=== PATIENT | female | born 1995 | race Caucasian/White ===

== ENCOUNTER 2019-03-09 17:24 | Inpatient (IN) | payer BC ==
[2019-03-09] MEDS ORDERED: Ondansetron 4 MG/2 ML SDV IVPUSH PRN (17:32)
[2019-03-09] MEDS ORDERED: Nalbuphine 10 MG/1 ML Vial IVPUSH PRN (19:58)
[2019-03-09] MEDS ORDERED: Sodium Chloride 0.9% 10 ML Syringe FLUSH PRN (19:58)
[2019-03-09] MEDS ORDERED: Oxytocin/Lactated Ringers 10 UNIT/1,000 ML BAG IV SCH (20:00)
[2019-03-09] MEDS ORDERED: Ampicillin 2 GM in Sodium Chloride 0.9% 100 ML IV ONE (20:30)
[2019-03-09] MEDS: Lactated Ringers 1,000 ML IV SCH (20:50)
--- NOTE | 2019-03-09 21:03 | PCM.LDHP ---
<Jose Cruz Doherty - Last Filed: 03/09/19 20:30> L&D History of Present Illness - General Date of Service: 03/09/19 Admit Problem/Dx: Patient Status Order with Admit Dx/Problem 03/09/19 17:32 Patient Status [ADT] Routine 03/09/19 19:58 Patient Status [ADT] Routine Admission Diagnosis/Problem Admission Diagnosis/Problem 03/09/19 20:30 Madhu is a 23-year-old 2 para 0010 white female who being admitted on 03/09/2019 for spontaneous labor. JOHN is 03/08/2019 placing the patient at 40 1/ 7 weeks gestational age upon admission. Source of Information: Patient History Limitations: Reports: No Limitations - History of Present Illness Introduction:: Introduction: Madhu is a 23-year-old 2 para 0010 white female at 40 1/7 weeks gestational age with an JOHN of 03/08/2019 who is being admitted on 03/09/2019 for spontaneous labor. [employer] History: Madhu is a 23-year-old 2 para 0010 white female at 40 1/7 weeks gestational age on admission based on her LMP (06/01/2018). Follow up ultrasounds X3 are consistent with this date. This has been relatively unremarkable. She plans on breast feeding. Unknown if genetic testing was performed. Group B strep screen was positive. Her first medical appointment for transfer of care to [facility] was on 11/12/2018. Early ultrasound was performed at an outside facility on 07/30/2018. During the course of her she gained approximately 22 pounds. Her vital signs remained stable throughout care and her fundal height growth was appropriate. She has a past history of : lap ovarian cystectomy (2011), open ovarian cystectomy (2013), and laparoscopic oophorectomy (2015). Laboratory testing in shows her blood type to be A-. First hemoglobin was 14.5g/dL and platelets were 272,000. She is rubella reactive. Hepatitis B surface antigen, HIV assay, chlamydia, and gonorrhea were all negative. RPR was nonreactive. Group B strep screen was positive. Second trimester labs show hemoglobin at 14.5g/dL and platelets at 291,000. Glucose tolerance test was 123mg/dL. - Related Data Allergies/Adverse Reactions: Allergies Allergy/AdvReac Type Severity Reaction Status Date / Time No Known Allergies Allergy Verified 02/27/19 11:51 Home Medications: Home Meds Omeprazole 20 mg PO DAILY 03/09/19 [History] PNV95/Ferrous Fumarate/FA [ Tablet] 1 each PO DAILY 03/09/19 [History] Past Medical History - Past Health History Medical/Surgical History: Denies Medical/Surgical History (Denies medical history.) - Past Surgical History Female Surgical History: Reports: Cystectomy (Lap ovarian cystectomy (left) 2011; Open ovarian cystectomy (left) 2013.), Oophorectomy Other Female Surgeries/Procedures: Laparoscopic oophorectomy (left) 2015. Social & Family History - Family History Family Medical History: Noncontributory - Tobacco Use Smoking Status *Q: Former Smoker (10 year history. Cigarettes. Quit 06/15/2018.) Tobacco Use Within Last Twelve Months: Cigarettes Years of Tobacco use: 10 Used Tobacco, but Quit: Yes Month/Year Tobacco Last Used: 06/15/2018 - Alcohol Use Alcohol Use History: No - Recreational Drug Use Recreational Drug Use: No H&P Review of Systems - Review of Systems: Review Of Systems: See Below General: Reports: No Symptoms HEENT: Reports: No Symptoms Pulmonary: Reports: No Symptoms Cardiovascular: Reports: No Symptoms Gastrointestinal: Reports: No Symptoms Musculoskeletal: Reports: No Symptoms Skin: Reports: No Symptoms Psychiatric: Reports: No Symptoms Neurological: Reports: No Symptoms Review of Systems Comment:: In general, Madhu is a well developed, well-nourished, pleasant female in no acute distress. Last evaluation in clinic was on 03/04/2019. Blood pressure was 134/76.Weight was 257 pounds. Height is 5'6". Her pregravid weight was 235 pounds. Pregravid BMI was 37.9. L&D Exam - Exam Exam: See Below - Vital Signs Vital Signs: Last Vital Signs Temp 36.8 C 03/09/19 17:32 Pulse 113 H 03/09/19 17:32 Resp 18 03/09/19 17:32 BP 139/87 03/09/19 17:32 Pulse Ox Weight: 115.122 kg - Exam General: Alert, Oriented HEENT: Conjunctiva Clear, EOMI, Hearing Intact, Pupils Equal, Pupils Reactive Neck: Supple, Trachea Midline Lungs: Clear to Auscultation Cardiovascular: Regular Rate, Regular Rhythm Extremities: Normal Inspection, Normal Range of Motion, Non-Tender, No Pedal Edema, Normal Capillary Refill Skin: Warm, Dry, Intact Psychiatric: Alert, Normal Affect, Normal Mood Orders Last 24hrs: Active Orders 24 hr Category Date Time Status Patient Status [ADT] Routine ADT 03/09/19 19:58 Active Activity as Tolerated [RC] PFP Care 03/09/19 19:58 Active Communication Order [RC] ASDIRECTED Care 03/09/19 19:58 Active Heart Tones [RC] ASDIRECTED Care 03/09/19 19:59 Active Non Stress Test [RC] PER UNIT ROUTINE Care 03/09/19 17:32 Active Notify Provider [RC] PFP Care 03/09/19 19:58 Active Notify Provider [RC] PRN Care 03/09/19 19:58 Active Peripheral IV Care [RC] . DIRECTED Care 03/09/19 19:59 Active Vital Signs [RC] PER UNIT ROUTINE Care 03/09/19 17:32 Active Vital Signs [RC] PER UNIT ROUTINE Care 03/09/19 19:58 Active Regular Diet [DIET] Diet 03/09/19 Breakfast Active CBC WITH AUTO DIFF [HEME] Stat Lab 03/09/19 19:58 Ordered RAPID PLASMA REAGIN,RPR [CHEM] Routine Lab 03/09/19 19:58 Ordered Ampicillin 1 gm Med 03/10/19 00:30 Active Sodium Chloride 0.9% [Normal Saline] 100 ml IV Q4H Ampicillin 2 gm Med 03/09/19 20:30 Active Sodium Chloride 0.9% [Normal Saline] 100 ml IV ONETIME Lactated Ringers [Ringers, Lactated] 1,000 ml Med 03/09/19 20:00 Active IV ASDIRECTED Nalbuphine [Nubain] Med 03/09/19 19:58 Active 10 mg IVPUSH Q2H PRN Ondansetron [Zofran] Med 03/09/19 17:32 Active 4 mg IVPUSH Q4H PRN Oxytocin/Lactated Ringers [Pitocin in LR 10 Units/1,000 Med 03/09/19 20:00 Active ML] 10 unit in 1,000 ml IV .CONTINUOUS Sodium Chloride 0.9% [Saline Flush] Med 03/09/19 19:58 Active 10 ml FLUSH ASDIRECTED PRN Electronic Heart Tones Ext w TOCO [WOMSER] Oth 03/09/19 19:58 Ordered Routine Electronic Heart Tones Internal [WOMSER] Per Unit Oth 03/09/19 19:58 Ordered Routine Peripheral IV Insertion Adult [OM.PC] Routine Oth 03/09/19 19:58 Ordered Resuscitation Status Routine Resus Stat 03/09/19 17:32 Ordered Medication Orders Lactated Ringer's (Ringers, Lactated) 1,000 mls @ 100 mls/hr IV ASDIRECTED GABI Oxytocin/Lactated Ringer's (Pitocin In Lr 10 Units/1,000 Ml) 10 unit in 1,000 mls @ 500 mls/hr IV .CONTINUOUS GABI Ampicillin Sodium 2 gm/ Sodium (Chloride) 100 mls @ 200 mls/hr IV ONETIME ONE Stop: 03/09/19 20:59 Ampicillin Sodium 1 gm/ Sodium (Chloride) 100 mls @ 200 mls/hr IV Q4H GABI Nalbuphine HCl (Nubain) 10 mg IVPUSH Q2H PRN PRN Reason: Pain Ondansetron HCl (Zofran) 4 mg IVPUSH Q4H PRN PRN Reason: Nausea/Vomiting Sodium Chloride (Saline Flush) 10 ml FLUSH ASDIRECTED PRN PRN Reason: Keep Vein Open Assessment/Plan Comment:: Assessment: 1. 40 1/7 weeks gestational age. 2. Group B strep positive. 3. Blood type A-. 4. Desires Epidural. 5. Plans on breast feeding. 5. TDAP given 12/11/2018. 6. RPR negative. Plan: 1. Anticipate . 2. Administer ampicillin for group B strep. 3. Administer Rhogam. 4. Provide epidural. 5. CBC and RPR to be drawn. 6. Routine care. <Placido Kaiser - Last Filed: 03/10/19 13:27> L&D History of Present Illness - General Admit Problem/Dx: Patient Status Order with Admit Dx/Problem 03/09/19 17:32 Patient Status [ADT] Routine 03/09/19 19:58 Patient Status [ADT] Routine Admission Diagnosis/Problem Admission Diagnosis/Problem Source of Information: Patient History Limitations: Reports: No Limitations H&P Review of Systems - Review of Systems: Review Of Systems: See Below L&D Exam - Exam Exam: See Below - Vital Signs Vital Signs: Last Vital Signs Temp 36.8 C 03/09/19 17:32 Pulse 113 H 03/09/19 17:32 Resp 18 03/09/19 17:32 BP 139/87 03/09/19 17:32 Pulse Ox 99 03/10/19 04:05 - Patient Data Lab Results Last 24 hrs: Laboratory Results - last 24 hr 03/09/19 03/09/19 Range/Units 20:30 20:30 WBC 10.86 H (3.98-10.04) K/mm3 RBC 4.62 (3.98-5.22) M/mm3 Hgb 11.0 L (11.2-15.7) gm/dl Hct 35.3 (34.1-44.9) % MCV 76.4 L (79.4-94.8) fl MCH 23.8 L (25.6-32.2) pg MCHC 31.2 L (32.2-35.5) g/dl RDW Std Deviation 42.5 (36.4-46.3) fL Plt Count 312 (182-369) K/mm3 MPV 10.4 (9.4-12.3) fl Neut % (Auto) 71.2 H (34.0-71.1) % Lymph % (Auto) 21.8 (19.3-51.7) % Early % (Auto) 6.2 (4.7-12.5) % Eos % (Auto) 0.4 L (0.7-5.8) Baso % (Auto) 0.2 (0.1-1.2) % Neut # (Auto) 7.74 H (1.56-6.13) K/mm3 Lymph # (Auto) 2.37 (1.18-3.74) K/mm3 Early # (Auto) 0.67 H (0.24-0.36) K/mm3 Eos # (Auto) 0.04 (0.04-0.36) K/mm3 Baso # (Auto) 0.02 (0.01-0.08) K/mm3 RPR Non-reactive (NONREACTIVE) Result Diagrams: 03/09/19 20:30 Problem List Initiated/Reviewed/Updated: Yes Orders Last 24hrs: Active Orders 24 hr Category Date Time Status Patient Status [ADT] Routine ADT 03/09/19 19:58 Active Activity as Tolerated [RC] PFP Care 03/09/19 19:58 Active Communication Order [RC] ASDIRECTED Care 03/09/19 19:58 Active Heart Tones [RC] ASDIRECTED Care 03/09/19 19:59 Active Notify Provider [RC] ASDIRECTED Care 03/10/19 03:05 Active Notify Provider [RC] PFP Care 03/09/19 19:58 Active Notify Provider [RC] PRN Care 03/09/19 19:58 Active Peripheral IV Care [RC] . DIRECTED Care 03/09/19 19:59 Active Pulse Oximetry [RC] ASDIRECTED Care 03/10/19 03:05 Active Vital Signs [RC] 09,15,21,03 Care 03/09/19 17:32 Active Ampicillin 1 gm Med 03/10/19 00:30 Active Sodium Chloride 0.9% [Normal Saline] 100 ml IV Q4H Bupivicaine/fentaNYL/NS [fentaNYL/Bupivacaine/NS 2 MCG- Med 03/10/19 03:05 Active 0.125% 250 ML] 0 ml EPIDUR CONTINUOUS PRN Lactated Ringers [Ringers, Lactated] 1,000 ml Med 03/09/19 20:00 Active IV ASDIRECTED Nalbuphine [Nubain] Med 03/09/19 19:58 Active 10 mg IVPUSH Q2H PRN Ondansetron [Zofran] Med 03/10/19 03:05 Active 4 mg IVPUSH ONETIME PRN Ondansetron [Zofran] Med 03/09/19 17:32 Active 4 mg IVPUSH Q4H PRN Oxytocin/Lactated Ringers [Pitocin in LR 10 Units/1,000 Med 03/09/19 20:00 Active ML] 10 unit in 1,000 ml IV .CONTINUOUS Oxytocin/Lactated Ringers [Pitocin in LR 10 Units/1,000 Med 03/10/19 00:15 Active ML] 10 unit in 1,000 ml IV TITRATE Sodium Chloride 0.9% [Saline Flush] Med 03/09/19 19:58 Active 10 ml FLUSH ASDIRECTED PRN ePHEDrine [ePHEDrine sulfate] Med 03/10/19 03:05 Active 5 mg IVPUSH ASDIRECTED PRN fentaNYL [Sublimaze] Med 03/10/19 03:05 Active 100 mcg EPIDUR Q3H PRN Electronic Heart Tones Ext w TOCO [WOMSER] Oth 03/09/19 19:58 Ordered Routine Electronic Heart Tones Internal [WOMSER] Per Unit Oth 03/09/19 19:58 Ordered Routine Peripheral IV Insertion Adult [OM.PC] Routine Oth 03/09/19 19:58 Ordered Resuscitation Status Routine Resus Stat 03/09/19 17:32 Ordered Medication Orders Ephedrine Sulfate (Ephedrine Sulfate) 5 mg IVPUSH ASDIRECTED PRN PRN Reason: Hypotension Fentanyl (Sublimaze) 100 mcg EPIDUR Q3H PRN PRN Reason: Pain Fentanyl/Bupivacaine HCl (Fentanyl/Bupivacaine/Ns 2 Mcg-0.125% 250 Ml) 0 ml EPIDUR CONTINUOUS PRN PRN Reason: Pain Lactated Ringer's (Ringers, Lactated) 1,000 mls @ 100 mls/hr IV ASDIRECTED [facility] Last Admin: 03/10/19 05:25 Dose: 300 mls/hr Infusion: 03/10/19 05:05 Dose: 999 mls/hr Admin: 03/10/19 04:04 Dose: 999 mls/hr Infusion: 03/10/19 03:14 Dose: 999 mls/hr Infusion: 03/10/19 02:30 Dose: 999 mls/hr Infusion: 03/10/19 00:45 Dose: 100 mls/hr Infusion: 03/09/19 21:50 Dose: 0 mls/hr Admin: 03/09/19 20:50 Dose: 100 mls/hr Oxytocin/Lactated Ringer's (Pitocin In Lr 10 Units/1,000 Ml) 10 unit in 1,000 mls @ 500 mls/hr IV .CONTINUOUS [facility] Ampicillin Sodium 1 gm/ Sodium (Chloride) 100 mls @ 200 mls/hr IV Q4H [facility] Last Admin: 03/10/19 05:14 Dose: 200 mls/hr Infusion: 03/10/19 01:34 Dose: 200 mls/hr Admin: 03/10/19 01:04 Dose: 200 mls/hr Oxytocin/Lactated Ringer's (Pitocin In Lr 10 Units/1,000 Ml) 10 unit in 1,000 mls @ 12 mls/hr IV TITRATE GABI; Protocol Last Titration: 03/10/19 04:49 Dose: 0 munits/min, 0 mls/hr Titration: 03/10/19 01:40 Dose: 4 munits/min, 24 mls/hr Admin: 03/10/19 00:45 Dose: 2 munits/min, 12 mls/hr Nalbuphine HCl (Nubain) 10 mg IVPUSH Q2H PRN PRN Reason: Pain Last Admin: 03/10/19 01:51 Dose: 10 mg Ondansetron HCl (Zofran) 4 mg IVPUSH Q4H PRN PRN Reason: Nausea/Vomiting Ondansetron HCl (Zofran) 4 mg IVPUSH ONETIME PRN PRN Reason: Nausea/Vomiting Sodium Chloride (Saline Flush) 10 ml FLUSH ASDIRECTED PRN PRN Reason: Keep Vein Open Assessment/Plan Comment:: I have read and agree with the student's history and physical documentation.
[2019-03-10] MEDS ORDERED: Oxytocin/Lactated Ringers 10 UNIT/1,000 ML BAG IV SCH (00:15)
[2019-03-10] MEDS: Ampicillin 1 GM in Sodium Chloride 0.9% 100 ML IV SCH ×4 (01:04→13:23)
[2019-03-10] MEDS ORDERED: ePHEDrine 50 MG/ML SDV IVPUSH PRN (03:05)
[2019-03-10] MEDS ORDERED: Ondansetron 4 MG/2 ML SDV IVPUSH PRN (03:05)
[2019-03-10] MEDS ORDERED: fentaNYL 100 MCG/2 ML SDV EPIDUR PRN (03:05)
[2019-03-10] MEDS ORDERED: fentaNYL/Bupivacaine/NS 2 MCG-0.125% 250 ML EPIDUR PRN (03:05)
--- NOTE | 2019-03-10 03:08 | PCM.PREANE ---
Preanesthetic Assessment - Anesthesia/Transfusion/Family Hx Anesthesia History: Prior Anesthesia Without Reaction Family History of Anesthesia Reaction: No Transfusion History: No Prior Transfusion(s) Intubation History: Unknown - Review of Systems General: No Symptoms Pulmonary: No Symptoms (quit smoking ) Cardiovascular: No Symptoms Gastrointestinal: No Symptoms (GERD) Neurological: No Symptoms (Patient states she has lower back pain chronically.) , Headache (History of migraines) Other: Reports: None - Physical Assessment NPO Status Date: 03/09/19 NPO Status Time: 23:00 Vital Signs: Last Vital Signs Temp 36.8 C 03/09/19 17:32 Pulse 113 H 03/09/19 17:32 Resp 18 03/09/19 17:32 BP 139/87 03/09/19 17:32 Pulse Ox Height: 1.68 m Weight: 115.122 kg ASA Class: 2 Mental Status: Alert & Oriented x3 Airway Class: Mallampati = 2 Dentition: Reports: Normal Dentition, Caries Thyro-Mental Finger Breadths: 3 Mouth Opening Finger Breadths: 3 ROM/Head Extension: Full Lungs: Clear to Auscultation, Normal Respiratory Effort Cardiovascular: Regular Rate, Regular Rhythm, No Murmurs - Lab Values: Laboratory Last Values WBC 10.86 K/mm3 (3.98-10.04) H 03/09/19 20:30 RBC 4.62 M/mm3 (3.98-5.22) 03/09/19 20:30 Hgb 11.0 gm/dl (11.2-15.7) L 03/09/19 20:30 Hct 35.3 % (34.1-44.9) 03/09/19 20:30 MCV 76.4 fl (79.4-94.8) L 03/09/19 20:30 MCH 23.8 pg (25.6-32.2) L 03/09/19 20:30 MCHC 31.2 g/dl (32.2-35.5) L 03/09/19 20:30 RDW Std Deviation 42.5 fL (36.4-46.3) 03/09/19 20:30 Plt Count 312 K/mm3 (182-369) 03/09/19 20:30 MPV 10.4 fl (9.4-12.3) 03/09/19 20:30 Neut % (Auto) 71.2 % (34.0-71.1) H 03/09/19 20:30 Lymph % (Auto) 21.8 % (19.3-51.7) 03/09/19 20:30 [place] % (Auto) 6.2 % (4.7-12.5) 03/09/19 20:30 Eos % (Auto) 0.4 (0.7-5.8) L 03/09/19 20:30 Baso % (Auto) 0.2 % (0.1-1.2) 03/09/19 20:30 Neut # (Auto) 7.74 K/mm3 (1.56-6.13) H 03/09/19 20:30 Lymph # (Auto) 2.37 K/mm3 (1.18-3.74) 03/09/19 20:30 [place] # (Auto) 0.67 K/mm3 (0.24-0.36) H 03/09/19 20:30 Eos # (Auto) 0.04 K/mm3 (0.04-0.36) 03/09/19 20:30 Baso # (Auto) 0.02 K/mm3 (0.01-0.08) 03/09/19 20:30 RPR Non-reactive (NONREACTIVE) 03/09/19 20:30 Above labs reviewed and noted and within acceptable ranges to proceed with epidural. - Allergies Allergies/Adverse Reactions: Allergies Allergy/AdvReac Type Severity Reaction Status Date / Time No Known Allergies Allergy Verified 02/27/19 11:51 - Anesthesia Plan Pre-Op Medication Ordered: None - Acknowledgements Anesthesia Type Planned: Epidural Pt an Appropriate Candidate for the Planned Anesthesia: Yes Alternatives and Risks of Anesthesia Discussed w Pt/Guardian: Yes Pt/Guardian Understands and Agrees with Anesthesia Plan: Yes PreAnesthesia Questionnaire - Past Health History Medical/Surgical History: Denies Medical/Surgical History (Denies medical history.) HEENT History: Reports: None Cardiovascular History: Reports: None Respiratory History: Reports: None Gastrointestinal History: Reports: None Genitourinary History: Reports: None 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: , Spontaneous , Other (See Below) Other OB/BYN History: L ovarian cysts (3 x) with ultimate surgical removal of L ovary Musculoskeletal History: Reports: None Neurological History: Reports: None Psychiatric History: Reports: None Endocrine/Metabolic History: Reports: None Hematologic History: Reports: None Immunologic History: Reports: None Oncologic (Cancer) History: Reports: None Dermatologic History: Reports: None - Infectious Disease History Infectious Disease History: Reports: None - Past Surgical History Female Surgical History: Reports: Cystectomy (Lap ovarian cystectomy (left) 2011; Open ovarian cystectomy (left) 2013.), Oophorectomy Other Female Surgeries/Procedures: Laparoscopic oophorectomy (left) 2015. - SUBSTANCE USE Smoking Status *Q: Former Smoker (10 year history. Cigarettes. Quit 06/15/2018.) Tobacco Use Within Last Twelve Months: Cigarettes Second Hand Smoke Exposure: No Recreational Drug Use History: No - HOME MEDS Home Medications: Home Meds Omeprazole 20 mg PO DAILY 03/09/19 [History] PNV95/Ferrous Fumarate/FA [ Tablet] 1 each PO DAILY 03/09/19 [History] - CURRENT (IN HOUSE) MEDS Current Meds: Current Medications Ephedrine Sulfate (Ephedrine Sulfate) 5 mg IVPUSH ASDIRECTED PRN PRN Reason: Hypotension Fentanyl (Sublimaze) 100 mcg EPIDUR Q3H PRN PRN Reason: Pain Fentanyl/Bupivacaine HCl (Fentanyl/Bupivacaine/Ns 2 Mcg-0.125% 250 Ml) ml EPIDUR CONTINUOUS PRN PRN Reason: Pain Lactated Ringer's (Ringers, Lactated) 1,000 mls @ 100 mls/hr IV ASDIRECTED GABI Last Infusion: 03/10/19 02:30 Dose: 999 mls/hr Oxytocin/Lactated Ringer's (Pitocin In Lr 10 Units/1,000 Ml) 10 unit in 1,000 mls @ 500 mls/hr IV .CONTINUOUS GABI Ampicillin Sodium 1 gm/ Sodium (Chloride) 100 mls @ 200 mls/hr IV Q4H GABI Last Admin: 03/10/19 01:04 Dose: 200 mls/hr Oxytocin/Lactated Ringer's (Pitocin In Lr 10 Units/1,000 Ml) 10 unit in 1,000 mls @ 12 mls/hr IV TITRATE GABI; Protocol Last Titration: 03/10/19 01:40 Dose: 4 munits/min, 24 mls/hr Nalbuphine HCl (Nubain) 10 mg IVPUSH Q2H PRN PRN Reason: Pain Last Admin: 03/10/19 01:51 Dose: 10 mg Ondansetron HCl (Zofran) 4 mg IVPUSH Q4H PRN PRN Reason: Nausea/Vomiting Ondansetron HCl (Zofran) 4 mg IVPUSH ONETIME PRN PRN Reason: Nausea/Vomiting Sodium Chloride (Saline Flush) 10 ml FLUSH ASDIRECTED PRN PRN Reason: Keep Vein Open Discontinued Medications Ampicillin Sodium 2 gm/ Sodium (Chloride) 100 mls @ 200 mls/hr IV ONETIME ONE Stop: 03/09/19 20:59 Last Admin: 03/09/19 21:00 Dose: 200 mls/hr
[2019-03-10] MEDS: Lactated Ringers 1,000 ML IV SCH ×4 (04:04→13:23)
[2019-03-10] MEDS ORDERED: Lidocaine 1.5% with EPINEPHrine 1:200,000 5 ML Amp ONE (12:00)
[2019-03-10] MEDS ORDERED: Bupivacaine 0.25% 10 ML SDV ONE (12:00)
--- NOTE | 2019-03-10 13:32 | PCM.SN ---
- Free Text/Narrative Note: Progress has been slow but steady. FHTs at times have had decreased variability but this improves with scalp manipulation. IUPC placed showing regular ctx q 3 minutes with adequate strength. Some early decels noted at times. Cx-9+/+1100%/anterior and very soft. A: slow progression of labor P: will monitor ctx and if adequate allow for 1-2 hours. If no change in cx may consider abdominal delivery. If inadequate will add pitocin judiciously. Monitor for FHTs and intervene as indicated.
[2019-03-10] MEDS ORDERED: Lidocaine 1% 50 ML MDV ONE (16:06)
--- NOTE | 2019-03-10 16:41 | PCM.SN ---
- Free Text/Narrative Note: Madhu is a 23-year-old 2 para 0010 white female who being admitted on 03/09/2019 for spontaneous labor. JOHN is 03/08/2019 placing the patient at 40 1/ 7 weeks gestational age upon admission. She had Nubain initially for pain control and then stepped up to an epidural. This slowly but steadily to complete cervical dilation by approximately 1300 hrs. on 03/10/2019. She continued to push at this time until approximately 1600 hrs. as which time she was having significant variable to late decelerations down to the 90s. Decision was made to proceed with vacuum extraction assistance. The procedure, risks, benefits, alternatives of care including discussed with patient. She appeared to understand and gave verbal consent. Back extractor was placed and with one contraction the baby was delivered.Midline episiotomy was made.Pop off occurred after the delivery of the baby's head. They've then proceeded to deliver without any incident. Baby delivered at 1601 hrs. on 03/10/2019 in a direct occiput anterior position. Baby weighed 3630 g (8 lbs. 0 oz.), had a length of 21 inches and Apgars of 8 and 9. Baby was placed on mom's abdomen. Nose and mouth were bulb suctioned. Cord was allowed to pulsate until finished. It was then clamped 2 and cut. Umbilical cord had 3 vessels. Cord blood was obtained. The placenta delivered in a [place] patient patient, appeared intact and complete and was discarded per patient desire. The area of the episiotomy was infiltrated with lidocaine 1%-20 mL total. The patient on it was repaired with 3 -0 Monocryl suture in a routine fashion. Assessment blood loss was approximately 200 mL. Patient plans to breast-feed. Condition: Good. It should be noted that Nubain 10 mg was given IV push after delivery of the baby for pain relief.
[2019-03-10] MEDS ORDERED: Benzocaine/Menthol 20%-0.5% Spray 56 GM Canister TOP PRN (17:13)
[2019-03-10] MEDS ORDERED: Witch Hazel Medicated Pads 40/Jar TOP PRN (17:13)
[2019-03-10] MEDS: Ibuprofen 600 MG Tab PO PRN ×2 (18:23→22:51)
[2019-03-11] MEDS: Ibuprofen 600 MG Tab PO PRN ×5 (04:41→23:39)
--- NOTE | 2019-03-11 08:02 | PCM.SN ---
- Free Text/Narrative Note: note: Patient is doing well in the period. Minimal lochia, voiding well, ambulated without problems. Nursing without concerns. Patient is afebrile, vital signs are stable Abdomen is flat, soft, uterus is below the umbilicus and is firm and nontender. Legs are nontender. Assessment: recovery going well. Plan: Routine care. Patient be discharged home within the next 24-48 hours.
[2019-03-11] MEDS: Ampicillin 1 GM in Sodium Chloride 0.9% 100 ML IV SCH (08:38)
[2019-03-11] MEDS: Prenatal Multivitamin with Calcium/Folic Acid/Iron Tab PO SCH (13:58)
--- NOTE | 2019-03-11 16:26 | PCM48HPAN ---
Post Anesthesia Note - EVALUATION WITHIN 48HRS OF ANESTHETIC Vital Signs in Normal Range: Yes Patient Participated in Evaluation: Yes Respiratory Function Stable: Yes Airway Patent: Yes Cardiovascular Function Stable: Yes Hydration Status Stable: Yes Pain Control Satisfactory: Yes Nausea and Vomiting Control Satisfactory: Yes Mental Status Recovered: Yes Vital Signs: Last Vital Signs Temp 97.9 F 03/11/19 02:33 Pulse 99 03/11/19 11:24 Resp 14 03/11/19 11:24 BP 130/55 L 03/11/19 11:24 Pulse Ox 98 03/11/19 11:24
[2019-03-11] MEDS: Docusate Sodium 100 MG Cap PO PRN (17:59)
[2019-03-11] MEDS: Acetaminophen 325 MG Tab PO PRN (20:27)
[2019-03-12] MEDS: Ibuprofen 600 MG Tab PO PRN ×2 (05:48→11:03)
[2019-03-12] MEDS: Docusate Sodium 100 MG Cap PO PRN (05:48)
[2019-03-12] MEDS: Prenatal Multivitamin with Calcium/Folic Acid/Iron Tab PO SCH (09:12)
[2019-03-12] MEDS: Acetaminophen 325 MG Tab PO PRN (09:13)
--- NOTE | 2019-03-12 09:40 | PCM.DCSUM1 ---
Discharge Summary - Hospital Course Free Text/Narrative:: Madhu is a 23-year-old 2 para 0010 white female who being admitted on 03/09/2019 for spontaneous labor. JOHN is 03/08/2019 placing the patient at 40 1/ 7 weeks gestational age upon admission. She had Nubain initially for pain control and then stepped up to an epidural. This slowly but steadily to complete cervical dilation by approximately 1300 hrs. on 03/10/2019. She continued to push at this time until approximately 1600 hrs. as which time she was having significant variable to late decelerations down to the 90s. Decision was made to proceed with vacuum extraction assistance. The procedure, risks, benefits, alternatives of care including discussed with patient. She appeared to understand and gave verbal consent. Back extractor was placed and with one contraction the baby was delivered.Midline episiotomy was made.Pop off occurred after the delivery of the baby's head. They've then proceeded to deliver without any incident. Baby delivered at 1601 hrs. on 03/10/2019 in a direct occiput anterior position. Baby weighed 3630 g (8 lbs. 0 oz.), had a length of 21 inches and Apgars of 8 and 9. Baby was placed on mom's abdomen. Nose and mouth were bulb suctioned. Cord was allowed to pulsate until finished. It was then clamped 2 and cut. Umbilical cord had 3 vessels. Cord blood was obtained. The placenta delivered in a [place] patient patient, appeared intact and complete and was discarded per patient desire. The area of the episiotomy was infiltrated with lidocaine 1%-20 mL total. The patient on it was repaired with 3 -0 Monocryl suture in a routine fashion. Assessment blood loss was approximately 200 mL. Patient plans to breast-feed. Condition: Good. It should be noted that Nubain 10 mg was given IV push after delivery of the baby for pain relief. patient is currently well. She is nursing without problems. Ambulating well and has minimal lochia. She is ready for discharge home. Diagnosis: Stroke: No - Discharge Data Discharge Date: 03/12/19 Discharge Disposition: Home, Self-Care 01 Condition: Good - Referral to Home Health Primary Care Physician: Ashlie Thorpe MD - Patient Instructions Diet: Regular Diet as Tolerated (increased calories and calcium is recommended.) Activity: As Tolerated (no intercourse tampons still bleeding results), No Lifting Over 25 Pounds Driving: May Drive Today Showering/Bathing: May Shower (may take a bath) Notify Provider of: Fever, Increased Pain, Swelling and Redness, Nausea and/or Vomiting - Discharge Plan Home Medications: Home Meds PNV95/Ferrous Fumarate/FA [ Tablet] 1 each PO DAILY 03/09/19 [History] Acetaminophen [Tylenol] 650 mg PO Q4H PRN tablet 03/12/19 [Rx] Ibuprofen [Motrin] 600 mg PO Q4H PRN tablet 03/12/19 [Rx] Referrals: Ashlie Thorpe MD [Primary Care Provider] - - Discharge Summary/Plan Comment DC Time >30 min.: No Discharge Summary/Plan Comment: Discharge instructions: 1. Discharge home 2. Diet, activity and follow-up discussed with patient. Recommend nursing diet with increased calories and calcium. 3. Precautions given concern increased pain, bleeding, temperature, signs/ symptoms of DVT/PE. 4. Medications per home medication was printed, discussed with and given to the patient. 5. Return to clinic-Dr. Thorpe[address] [facility]. Diagnosis: Term -delivered Condition: Good - Patient Data Vitals - Most Recent: Last Vital Signs Temp 36.4 C 03/12/19 02:17 Pulse 98 03/12/19 02:17 Resp 16 03/12/19 02:17 BP 129/44 L 03/12/19 02:17 Pulse Ox 99 03/12/19 02:17 Weight - Most Recent: 115.122 kg I&O - Last 24 hours: Intake & Output 03/11/19 03/12/19 03/12/19 22:59 06:59 14:59 Intake Total 120 Balance 120 Lab Results - Last 24 hrs: Laboratory Results - last 24 hr 03/11/19 Range/Units 05:19 Blood Type A NEGATIVE Gel Antibody Screen Negative Screen 1 ros/5 flds - neg RhIG Candidate? Yes Rhogam Indicated Yes, baby rh pos H Med Orders - Current: Current Medications Acetaminophen (Tylenol) 650 mg PO Q4H PRN PRN Reason: mild pain or fever Last Admin: 03/12/19 09:13 Dose: 650 mg Benzocaine/Menthol (Dermoplast Pain Relief [place]) 0 gm TOP ASDIRECTED PRN PRN Reason: Perineal Comfort Measure Docusate Sodium (Colace) 100 mg PO BID PRN PRN Reason: Constipation Last Admin: 03/12/19 05:48 Dose: 100 mg Ibuprofen (Motrin) 600 mg PO Q4H PRN PRN Reason: Mild pain or fever Last Admin: 03/12/19 05:48 Dose: 600 mg Prenat Multivit/[place]/Iron/Folic Ac ( Plus Iron) 1 each PO DAILY GABI Last Admin: 03/12/19 09:12 Dose: 1 each Witch Ivis (Tucks) 1 pad TOP ASDIRECTED PRN PRN Reason: Pain Discontinued Medications Bupivacaine HCl (Sensorcaine-Mpf 0.25%) 20 ml .ROUTE .STK-MED ONE Stop: 03/10/19 12:01 Ephedrine Sulfate (Ephedrine Sulfate) 5 mg IVPUSH ASDIRECTED PRN PRN Reason: Hypotension Fentanyl (Sublimaze) 100 mcg EPIDUR Q3H PRN PRN Reason: Pain Last Admin: 03/10/19 11:47 Dose: 100 mcg Fentanyl/Bupivacaine HCl (Fentanyl/Bupivacaine/Ns 2 Mcg-0.125% 250 Ml) 0 ml EPIDUR CONTINUOUS PRN PRN Reason: Pain Lactated Ringer's (Ringers, Lactated) 1,000 mls @ 100 mls/hr IV ASDIRECTED GABI Last Admin: 03/10/19 13:23 Dose: 125 mls/hr Oxytocin/Lactated Ringer's (Pitocin In Lr 10 Units/1,000 Ml) 10 unit in 1,000 mls @ 500 mls/hr IV .CONTINUOUS GABI Ampicillin Sodium 2 gm/ Sodium (Chloride) 100 mls @ 200 mls/hr IV ONETIME ONE Stop: 03/09/19 20:59 Last Admin: 03/09/19 21:00 Dose: 200 mls/hr Ampicillin Sodium 1 gm/ Sodium (Chloride) 100 mls @ 200 mls/hr IV Q4H GABI Last Admin: 03/11/19 08:38 Dose: Not Given Oxytocin/Lactated Ringer's (Pitocin In Lr 10 Units/1,000 Ml) 10 unit in 1,000 mls @ 12 mls/hr IV TITRATE GABI; Protocol Last Titration: 03/10/19 15:10 Dose: 1.5 munits/min, 9 mls/hr Lidocaine HCl (Xylocaine 1%) Confirm Administered Dose 50 ml .ROUTE .[employer] ONE Stop: 03/10/19 16:07 Last Admin: 03/11/19 08:38 Dose: Not Given Lidocaine/Epinephrine (Xylocaine-Mpf 1.5% W/Epinephrine 1:200,000) 5 ml .ROUTE .[employer] ONE Stop: 03/10/19 12:01 Nalbuphine HCl (Nubain) 10 mg IVPUSH Q2H PRN PRN Reason: Pain Last Admin: 03/10/19 01:51 Dose: 10 mg Ondansetron HCl (Zofran) 4 mg IVPUSH Q4H PRN PRN Reason: Nausea/Vomiting Ondansetron HCl (Zofran) 4 mg IVPUSH ONETIME PRN PRN Reason: Nausea/Vomiting Sodium Chloride (Saline Flush) 10 ml FLUSH ASDIRECTED PRN PRN Reason: Keep Vein Open
== END 2019-03-12 12:00 | disposition home or self-care (01) | DRG 560 ==
LOC: JD.OBCHECK 17:24 → JD.OB 17:26 → JD.OBCHECK 19:57 → JD.OB 19:58 → OBSVTOIN 03-10 16:01 → JD.OB 03-10 16:23
PROVIDERS: ADMIT Obstetrics & Gynecology; ATTEND Obstetrics & Gynecology
PROC: 10D07Z6 Extraction of Products of Conception, Vacuum, Via Natural or Artificial Opening (ICD-10-PCS; principal; 2019-03-10)
PROC: 0W8NXZZ Division of Female Perineum, External Approach (ICD-10-PCS; 2019-03-10)
PROC: 10H07YZ Insertion of Other Device into Products of Conception, Via Natural or Artificial Opening (ICD-10-PCS; 2019-03-10)
DX: O48.0 Post-term pregnancy (principal); O76 Abnormality in fetal heart rate and rhythm complicating labor and delivery; O99.824 Streptococcus B carrier state complicating childbirth; Z87.891 Personal history of nicotine dependence; O99.62 Diseases of the digestive system complicating childbirth; K21.9 Gastro-esophageal reflux disease without esophagitis; Z3A.40 40 weeks gestation of pregnancy; Z37.0 Single live birth; Z79.899 Other long term (current) drug therapy
CPT/HCPCS: 36415; 51702; 59025; 59409; 85025; 85461; 86592; 86850; 86900; 86901; A9270-GY; J0290; J2300; J2590; J2790; J3010; J3490; J7030; J7120